=== PATIENT | male | born 1955 | race Caucasian/White ===

== ENCOUNTER 2017-11-21 06:04 | Day surgery (SDC) | payer OTHER, BC ==
[2017-11-21] MEDS ORDERED: GENTAMICIN 80 MG INJ (06:30)
[2017-11-21] MEDS ORDERED: LIDOCAINE 4% (MPF) 5 ML INJ (06:30)
[2017-11-21] MEDS ORDERED: CARBACHOL 0.01% 1.5 ML OPH INJ (06:30)
[2017-11-21] MEDS ORDERED: DEXAMETHASONE 4 MG/ML 1 ML INJ (06:30)
[2017-11-21] MEDS ORDERED: CEFAZOLIN 1 GM INJ (06:30)
[2017-11-21] MEDS ORDERED: EPINEPHrine 1 MG INJ (06:31)
[2017-11-21] MEDS: SOD CHLORIDE 0.9% 1,000 ML IV (07:29)
[2017-11-21] MEDS: TROPICAMIDE 1% 3 ML OPH OPER (07:30)
[2017-11-21] MEDS ORDERED: DICLOFENAC 0.1% 2.5 ML OPH OPER (07:30)
[2017-11-21] MEDS: CYCLOPENTOLATE/PHENYLEPH 2 ML OPH OPER (07:30)
[2017-11-21] MEDS: MOXIFLOXACIN 0.5% 3 ML OPH OPER (07:30)
[2017-11-21] MEDS: DICLOFENAC 0.1% LEFT EYE (07:39)
[2017-11-21 07:52] LABS: ADD MAN DIFF? NO
[2017-11-21 07:54] LABS: WHITE BLOOD COUNT 7.4 10^3/ul (4.8-10.8)
[2017-11-21 07:54] LABS: BASOPHILS % 0.5 % (0.0-2.0); EOSINOPHILS # 0.5 10^3/ul (0.0-0.5); EOSINOPHILS % 6.5 % (0.0-7.0); HEMATOCRIT 47.7 % (42.0-52.0); HEMOGLOBIN 16.4 g/dl (14.0-18.0); LYMPHOCYTES # 1.6 10^3/ul (0.8-2.9); LYMPHOCYTES % 21.4 % (15.0-51.0); MEAN CORPUSCULAR HGB CONC 34.4 g/dl (32.0-37.0); MEAN CORPUSCULAR VOLUME 93.2 fl (82.0-101.0); MEAN PLATELET VOLUME 11.7 fl (7.4-10.4); MONOCYTE # 0.6 10^3/ul (0.3-0.9); MONOCYTES % 8.2 % (0.0-11.0); NEUTROPHIL # 4.6 10^3/ul (1.6-7.5); PLATELET COUNT 155 10^3/UL (140-415); RED BLOOD COUNT 5.12 10^6/ul (4.70-6.10)
[2017-11-21 07:57] LABS: ADD UMIC NO; UR ASCORBIC ACID NEGATIVE (NEGATIVE); UR BILIRUBIN (Dip) NEGATIVE (NEGATIVE); UR BLOOD (Dip) NEGATIVE (NEGATIVE); UR CLARITY CLEAR (CLEAR); UR COLOR YELLOW (YELLOW); UR GLUCOSE (Dip) 3+ mg/dL (NEGATIVE); UR KETONES (Dip) NEGATIVE (NEGATIVE); UR LEUKOCYTE ESTERASE (Dip) NEGATIVE Leu/ul (NEGATIVE); UR NITRITE (Dip) NEGATIVE (NEGATIVE); UR SPECIFIC GRAVITY (Dip) 1.028 (1.003-1.030); UR TOTAL PROTEIN (Dip) NEGATIVE (NEGATIVE); UR UROBILINOGEN (Dip) NEGATIVE (NEGATIVE)
[2017-11-21 08:13] LABS: PARTIAL THROMBOPLASTIN TIME 29.1 Sec (23.0-35.0); PROTIME 12.2 Sec (11.9-14.9)
[2017-11-21] MEDS: DEXAMETHASONE 4 MG/ML 1 ML INJ INJ (08:15)
[2017-11-21] MEDS: CARBACHOL 0.01% 1.5 ML OPH INJ IO (08:15)
[2017-11-21] MEDS: CEFAZOLIN 1 GM INJ INJ (08:15)
[2017-11-21] MEDS ORDERED: LIDOCAINE 2% (SDV) 5 ML INJ (08:46)
[2017-11-21] MEDS ORDERED: ETOMIDATE 20 MG INJ (08:46)
[2017-11-21] MEDS ORDERED: FENTAnyl 50 MCG/ML VIAL ×2 (08:55)
[2017-11-21] MEDS ORDERED: hydrALAzine 20 MG INJ (08:58)
[2017-11-21] MEDS ORDERED: hydrALAzine 20 MG INJ IV (09:00)
[2017-11-21] MEDS ORDERED: LABETALOL HCL 20MG INJ IV (09:00)
[2017-11-21] MEDS ORDERED: ACETAZOLAMIDE 250 MG TAB PO (21:00)
== END 2017-11-21 10:51 | disposition home or self-care (01) ==
LOC: SDS 06:04
DX: H25.12 Age-related nuclear cataract, left eye (principal); I10 Essential (primary) hypertension; E78.5 Hyperlipidemia, unspecified; Z79.4 Long term (current) use of insulin; E78.00 Pure hypercholesterolemia, unspecified; E11.9 Type 2 diabetes mellitus without complications
CPT/HCPCS: 66984; 71045; 81003; 82962; 85025; 85610; 85730